=== PATIENT | female | born 1985 | race Caucasian/White ===

== ENCOUNTER → 2016-12-27 | Outpatient (REF) | payer SELFPAY ==
[~2016-12-27] MED LIST: PNV1TABL80 PO
[2016-12-27 17:39] LABS: BILIRUBIN,URINE Negative (Negative); CLARITY,URINE Clear; COLOR,URINE Yellow; GLUCOSE, URINE (UA) Negative (Negative); LEUKOCYTE ESTERASE ,URINE 1+ (Negative); UROBILINOGEN,URINE 0.2 mg/dL (0.2-1.0)
[2016-12-27 17:53] LABS: RBC,URINE None Seen /HPF; URINE CENTRIFUGED VOLUME 12 mL
[2016-12-27 17:57] LABS: AMPHETAMINE SCREEN, URINE Negative (Negative); CANNABINOID SCREEN, URINE Negative (Negative); METHAMPHETAMINE SCREEN URINE S NEGATIVE (NEGATIVE); OPIATE SCREEN URINE Negative (Negative); PROPOXYPHENE STAT NEGATIVE (NEGATIVE)
== END ==
LOC: LAB 17:00
PROVIDERS: ATTEND Obstetrics & Gynecology
DX: Z34.83 Encounter for supervision of other normal pregnancy, third trimester (principal); F19.10 Other psychoactive substance abuse, uncomplicated; Z98.891 History of uterine scar from previous surgery; Z72.0 Tobacco use
CPT/HCPCS: 80307; 81003; 81015; 87088

== ENCOUNTER 2016-12-30 17:52 | Observation (INO) | payer MEDICAID ==
[2016-12-30] VITALS (10 sets, daily range): BP systolic 118–161; BP diastolic 63–110
[~2016-12-30] VITALS: Ht 162.6 cm; Wt 74.3 kg
[2016-12-30] MEDS ORDERED: PNV1TABL80 PO (18:42)
[2016-12-30 19:26] LABS: BILIRUBIN,URINE Negative (Negative); GLUCOSE, URINE (UA) Negative (Negative); LEUKOCYTE ESTERASE ,URINE 1+ (Negative); PH,URINE 6.5 (5.0 - 8.0); UROBILINOGEN,URINE 0.2 mg/dL (0.2-1.0)
[2016-12-30 19:30] LABS: CLARITY,URINE Slightly Cloudy; COLOR,URINE Dark Yellow; URINE CENTRIFUGED VOLUME 12 mL
[2016-12-30 19:31] LABS: AMPHETAMINE SCREEN, URINE Negative (Negative); CANNABINOID SCREEN, URINE Negative (Negative); METHAMPHETAMINE SCREEN URINE S NEGATIVE (NEGATIVE); OPIATE SCREEN URINE Negative (Negative); RBC,URINE None Seen /HPF
[2016-12-30 19:32] LABS: PROPOXYPHENE STAT NEGATIVE (NEGATIVE)
--- NOTE | 2016-12-30 20:36 | History and Physical (E) ---
History & Physical (OB) Subjective: CC:White discharge HPI: 31 y/o C/S x1 now 36+6 WGA by patient reported outside U/S with white discharge, no itching, no clear fluid, no contractions. Amnisure negative , FHR 140, reactive, no decels. BP during monitoring have been 150-160/100- 110. UA shows tr protein, no DENISE, no LUQ pain. Has had slight chest/breathing tightness today. No recent drug use. PNC:In [place], transferred to [place] this week for care. OB Hx:C/S at term x1, failure to progress and intolerance of labor. PMHx:H/o drug use, smoker PSHx:C/S x1 Allergies: Coded Allergies: acetaminophen (Verified Allergy, Unknown, Hives, 12/30/16) hydrocodone (Verified Allergy, Unknown, Hives, 12/30/16) Home Medications: Reported Medications Pnv No.122/Iron/Folic Acid ( Multi Tablet)1 Each Tablet1 Each PO DAILY 12/30/16 Objective: Vital Signs Date Time Temp Pulse Resp B/P Pulse Ox O2 Delivery O2 Flow Rate FiO2 12/30/16 19:45 145/103 12/30/16 19:16 96 12/30/16 19:01 97.8 15 Laboratory Results Past 24 Hrs 12/30/16 18:10: Ur Tricyclic Antidepressants Screen Negative, Urine Amphetamines Screen Negative , Urine Bacteria 1+, Urine Barbiturates Screen Negative, Urine Benzodiazepines Screen Negative, Urine Bilirubin Negative, Urine Blood Negative, Urine Cannabinoids Screen Negative, Urine Clarity Slightly cloudy, Urine Cocaine Screen Negative, Urine Collection Type Clean catch, Urine Color Dark yellow, Urine Glucose (UA) Negative, Urine Ketones Negative, Urine Leukocyte Esterase 1+ , Urine Methadone Screen Negative, Urine Methamphetamines Screen Negative, Urine Microscopic RBC None seen, Urine Mucus 2+, Urine Nitrite Negative, Urine Opiates Screen Negative, Urine Oxycodone Screen Negative, Urine Phencyclidine Screen Negative, Urine Propoxyphene Screen Negative, Urine Protein Trace, Urine Specific [place] 1.020, Urine Squamous Epithelial Cells >100, Urine Urobilinogen 0.2, Urine WBC 5-10, Urine pH 6.5, Volume Urine Centrifuged 12 ml 12/30/16 18:15: Membranes Rupture (PAMG-1) Negative General: Alert and oriented, NAD Chest: Inspirations clear, no crackles or rattle. Small expiratory wheezes in bilateral bases. Abdomen: Gravid Cardiovasular: RRR, No murmur Extremities: No edema. DTR 2+ bilateral. no clonus or fasciculations. FHT's:140, reactive, reassuring, no decelerations Cx:NA [place]:none Screenings: Blood type: , Rubella , RPR non-reactive, HBV , HIV , GBS . Problems/Plans: (1) Gestational hypertension w/o significant proteinuria in 3rd trimester Place in observation for elevated blood pressure. We will monitor blood pressure, start 24 hour urine collection, complete labs and PIH labs. Continuous monitoring. She is already s/p betamethasone from elevated BP monitoring at 32 weeks. Additional Copies to: End of Report . AGUSTIN WALLACE MD Dec 30, 2016 20:36
[2016-12-30] MEDS ORDERED: ACETAMINOPHEN 325 MG TAB (TYLENOL) PO PRN (20:40)
[2016-12-30 21:09] LABS: BASOPHILS % (AUTO) 0 % (0-2); EOSINOPHILS # (AUTO) 0.1 10^3uL; EOSINOPHILS % (AUTO) 1 % (0-4); LYMPHOCYTES # (AUTO) 3.2 X10^3; MEAN CORPUSCULAR HEMOGLOBIN 29.3 PG (26.0-34.0); MEAN CORPUSCULAR HGB CONC 33.9 g/dL (31.0-37.0); MEAN CORPUSCULAR VOLUME 87 FL (80-100); MEAN PLATELET VOLUME 11.8 FL (6.0-9.5); MONOCYTES # (AUTO) 0.8 X10^3; MONOCYTES % (AUTO) 7 % (3-11); NEUTROPHILS # (AUTO) 7.1 X10^3; NEUTROPHILS % (AUTO) 63 % (51-67); PLATELET COUNT 183 10^3uL (150-450); WHITE BLOOD COUNT 11.29 10^3uL (4.0-11.0)
[2016-12-30 21:12] LABS: ALBUMIN 3.3 g/dL (3.4-5.0); ANION GAP 14.6 MEQ/L (3-15); TOTAL PROTEIN 7.2 g/dL (6.4-8.5)
[2016-12-31] VITALS (9 sets, daily range): BP systolic 132–177; BP diastolic 71–102
--- NOTE | 2016-12-31 09:03 | Progress Note-A/P (E) ---
Progress Note Subjective Subjective Feels great. BP overnight normal. No DENISE, vision change, RUQ pain. Breathing better and clearer. Normal movement, no LOF/VB/CTX. Objective VS Vital Signs Date Time Temp Pulse Resp B/P Pulse Ox O2 Delivery O2 Flow Rate FiO2 12/31/16 08:00 93 153/102 12/31/16 04:01 13 12/31/16 01:02 97.8 Current Medications Current Medications Acetaminophen 650 mg Q6H PRN PO; Start 12/30/16 at 20:40 General Awake, alert, oriented to person, place, and situation. NAD at present HEENT EOMI, PERRL CV RRR, S1 S2 audible Lungs Clear No rales, rhonchi or wheezes Abdomen Soft non distended, no tenderness to palpation, no masses Extremities No edema Integumentary No unusual findings Neuro No focal motor neuro deficits Labs, Most Recent- Laboratory Results Past 24 Hrs 12/30/16 18:10: Chlamydia trachomatis RNA [Pending], Chlamydia/GC DNA Probe Source [Pending], N. gonorrhoeae DNA Specimen Source [Pending], Neisseria gonorrhoeae RNA [Pending ], Ur Tricyclic Antidepressants Screen Negative, Urine Amphetamines Screen Negative, Urine Bacteria 1+, Urine Barbiturates Screen Negative, Urine Benzodiazepines Screen Negative, Urine Bilirubin Negative, Urine Blood Negative , Urine Cannabinoids Screen Negative, Urine Clarity Slightly cloudy, Urine Cocaine Screen Negative, Urine Collection Type Clean catch, Urine Color Dark yellow, Urine Glucose (UA) Negative, Urine Ketones Negative, Urine Leukocyte Esterase 1+, Urine Methadone Screen Negative, Urine Methamphetamines Screen Negative, Urine Microscopic RBC None seen, Urine Mucus 2+, Urine Nitrite Negative, Urine Opiates Screen Negative, Urine Oxycodone Screen Negative, Urine Phencyclidine Screen Negative, Urine Propoxyphene Screen Negative, Urine Protein Trace, Urine Specific [place] 1.020, Urine Squamous Epithelial Cells > 100, Urine Urobilinogen 0.2, Urine WBC 5-10, Urine pH 6.5, Volume Urine Centrifuged 12 ml 12/30/16 18:15: Membranes Rupture (PAMG-1) Negative 12/30/16 20:45: Activated Partial Thromboplast Time 26.2, Alanine Aminotransferase (ALT/SGPT) 58 , Albumin 3.3, Albumin/Globulin Ratio 0.846, Alkaline Phosphatase 186, Anion Gap 14.6, Aspartate Amino Transf (AST/SGOT) 36, BUN/Creatinine Ratio 22, Basophils # (Auto) 0.0, Basophils (%) (Auto) 0, Blood Urea Nitrogen 11, Calcium Level 9.1, Calcium/Ionized Calcium Ratio 4.0, Calculated Osmolality 267, Carbon Dioxide Level 25, Chloride Level 103, Creatinine 0.51, Eosinophils # (Auto) 0.1 , Eosinophils (%) (Auto) 1, Estimat Glomerular Filtration Rate 170.2, Estimated GFR (Non- 140.7, Fibrinogen 685.0, Glucose Level 89, HIV P24 Antigen Negative, HIV-1 Antibody Rapid Screen Negative, Hematocrit 30.40, Hemoglobin 10.3, Hepatitis B Surface Antigen [Pending], Lactate Dehydrogenase 357, Lymphocytes # (Auto) 3.2, Lymphocytes (%) (Auto) 28, Mean Corpuscular Hemoglobin 29.3, Mean Corpuscular Hemoglobin Concent 33.9, Mean Corpuscular Volume 87, Mean Platelet Volume 11.8, Monocytes # (Auto) 0.8, Monocytes (%) ( Auto) 7, Neutrophils # (Auto) 7.1, Neutrophils (%) (Auto) 63, Platelet Count 183 , Potassium Level 4.0, Prothromb Time International Ratio 0.9, Prothrombin Time 10.1, Rapid Plasma Reagin [Pending], Red Blood Count 3.51, Red Cell Distribution Width 12.8, Rubella IgG Antibody [Pending], Sodium Level 139, Total Bilirubin 0.4, Total Protein 7.2, Uric Acid 3.8, White Blood Count 11.29 24 Hr Result Diagram CBC BMP Last 24 Hrs 12/30/16 20:45 Assessment Gestational hypertension, S/P steroids at 32 weeks, now 36+6 WGA. All PIH labs normal. BP normal overnight, one elevated at 150/100 this morning, reports while she was up and upset. No treatable BP or consistent elevations. Plan We discussed discharge to home, 24 hour urine completion tonight, return to drop it off. Warning signs for preeclampsia, labor precautions reviewed. F/U Monday at our office. AGUSTIN WALLACE MD Dec 31, 2016 09:03
[2016-12-31 16:52] LABS: HEPATITIS B SURFACE ANTIGEN C Negative
[2017-01-01 10:49] LABS: RUBELLA AB IGG 1.13 OD Ratio (>1.09)
== END 2016-12-31 09:30 | disposition home or self-care (01) ==
LOC: EUOP 17:52 → OB 17:53 → INTOOBSV 20:20 → EUOP 20:20
PROVIDERS: ADMIT Obstetrics & Gynecology; ATTEND Obstetrics & Gynecology
DX: O13.3 Gestational [pregnancy-induced] hypertension without significant proteinuria, third trimester (principal); Z3A.36 36 weeks gestation of pregnancy
CPT/HCPCS: 36415; 80053; 80307; 81003; 81015; 83615; 84112; 84550; 85025; 85384; 85610; 85730; 86592; 86762; 86850; 86900; 86901; 87088; 87340; 87491; 87591; G0378; G0433; G0463; 84156; 99203; 99218

== ENCOUNTER → 2016-12-31 | Outpatient (CLI) | payer MEDICAID ==
[~2016-12-31] MED LIST changes: +DOCU100C8 PO; +FERR325T5 PO; +OXYC1TAB87 PO
== END ==
LOC: LAB 20:10
PROVIDERS: ATTEND Obstetrics & Gynecology
DX: O13.3 Gestational [pregnancy-induced] hypertension without significant proteinuria, third trimester (principal); Z3A.36 36 weeks gestation of pregnancy
CPT/HCPCS: 36415; 81050; 82575; 84156

== ENCOUNTER 2017-01-15 06:53 | Inpatient (IN) | payer MEDICAID ==
[~2017-01-15] VITALS: Ht 162.6 cm; Wt 78.6 kg
[2017-01-15] VITALS (21 sets, daily range): BP systolic 91–160; BP diastolic 50–110
[~2017-01-15 06:53] MED LIST changes: -DOCU100C8 PO; -FERR325T5 PO; -OXYC1TAB87 PO; +SODIUM CHLORIDE FLUSH 10 ML SYR IV PRN; +ceFAZolin 2,000 MG in SODIUM CHLORIDE VIAL (PF) 20 ML IV SCH
--- OUTSIDE RECORDS SUMMARY | 2017-01-15 06:57 | XMS REPORT | Continuity of Care Document ---
Author Author [facility] Address Unknown Phone Unavailable Support Name Relationship Address Phone AGUSTIN WALLACE MD Caregiver [address] [place] [address] BERNARDO CARPENTER Next Of Kin [address] [place] [address] Insurance Providers Payer Name Policy Number Subscriber Name Relationship Self Pay Jonathon Clifton 18 Self / Same As Patient Chief Complaint and Reason for Visit Chief Complaint LABOR EVAL Reason for Visit Gestational hypertension w/o significant proteinuria in 3rd trimester with 36 completed weeks gestation Vaginal discharge during in third trimester Problems Active Problems Medical Problem Onset Date Status Gestational hypertension w/o significant proteinuria in 3rd trimester Unknown Acute with 36 completed weeks gestation Unknown Acute Vaginal discharge during in third trimester Unknown Acute Medications Current Home Medications Medication Dose Units Route Directions Days/Qty Instructions Start Date Pnv No.122/Iron/Folic Acid 1 Each 1 Each ORAL Daily 12/30/16 Social History Query Response Start Date Stop Date Smoking Status Current every day smoker Hospital Discharge Instructions No hospital discharge instructions. Plan of Care Discharge Date 12/31/16 9:30am Disposition 01 HOME OR SELF-CARE Prescriptions See Medication Section Functional Status No functional status results. Allergies, Adverse Reactions, Alerts Allergen Type Severity Reaction Status Last Updated Hydrocodone Allergy Unknown Hives Active 12/30/16 Acetaminophen Allergy Unknown Hives Active 12/30/16 Immunizations No immunization records. Vital Signs Acute Vital Signs Vital Response Date/Time Temperature (Fahrenheit) 97.8 12/31/2016 1:02am Pulse 96 bpm 12/31/2016 9:00am Respirations 16 12/31/2016 9:00am Height 5 ft 4 in Weight 163 lb Body Mass Index 28.0 kg/m^2 Results Laboratory Results Test Name Result Units Flags Reference Collection Date/Time Result Date/ Time Comments Volume Urine Centrifuged 12 mL 12/27/2016 2:37pm 12/27/2016 5:54pm Urine Collection Type CLEAN CATCH 12/27/2016 2:37pm 12/27/2016 5: 54pm Urine Color Yellow 12/27/2016 2:37pm 12/27/2016 5:41pm Urine Clarity Clear 12/27/2016 2:37pm 12/27/2016 5:41pm Urine pH 7.0 5.0 - 8.0 12/27/2016 2:37pm 12/27/2016 5:41pm Urine Specific [place] 1.010 1.005-1.030 12/27/2016 2:37pm 2016 5:41pm Urine Protein Negative Negative 12/27/2016 2:37pm 12/27/2016 5:41pm Urine Glucose (UA) Negative Negative 12/27/2016 2:37pm 12/27/2016 5: 41pm Urine Blood Negative Negative 12/27/2016 2:37pm 12/27/2016 5:41pm Urine Ketones Negative Negative 12/27/2016 2:37pm 12/27/2016 5:41pm Urine Nitrite Negative Negative 12/27/2016 2:37pm 12/27/2016 5:41pm Urine Bilirubin Negative Negative 12/27/2016 2:37pm 12/27/2016 5: 41pm Urine Urobilinogen 0.2 mg/dL 0.2-1.0 12/27/2016 2:37pm 12/27/2016 5: 41pm Urine Leukocyte Esterase 1+ H Negative 12/27/2016 2:37pm 12/27/2016 5: 41pm Urine Microscopic RBC None Seen /HPF 12/27/2016 2:37pm 12/27/2016 5: 54pm Urine WBC 20-50 /HPF H 12/27/2016 2:37pm 12/27/2016 5:54pm Urine Bacteria Rare /HPF 12/27/2016 2:37pm 12/27/2016 5:54pm Urine Squamous Epithelial Cells 10-20 /LPF 12/27/2016 2:37pm 2016 5:54pm Pending Laboratory Results Test Name Collection Date/Time Procedures Procedure Status Date Provider(s) DRUG TEST PRSMV CHEM ANLYZR Completed 12/27/16 URINALYSIS AUTO W/O SCOPE Completed 12/27/16 MICROSCOPIC EXAM OF URINE Completed 12/27/16 URINE BACTERIA CULTURE Completed 12/27/16 Encounters Encounter Location Arrival/Admit Date Discharge/Depart Date Attending Provider Discharged Inpatient (obs) [facility] 12/30/16 8:20pm 12/31/16 9: 30am AGUSTIN WALLACE MD Registered Referred [facility] 12/27/16 5:00pm AGUSTIN WALLACE MD Recent Diagnosis Gestational hypertension w/o significant proteinuria in 3rd trimester with 36 completed weeks gestation Vaginal discharge during in third trimester
[2017-01-15] MEDS ORDERED: POT BICARB/SOD BICARB/CIT AC (ALKA-SELTZER GOLD) 1 TABLET.EFF PO SCH (07:00)
[2017-01-15] MEDS ORDERED: METOCLOPRAMIDE 10 MG/2 ML (REGLAN) VIAL IV SCH (07:00)
[2017-01-15 07:36] LABS: MEAN CORPUSCULAR HEMOGLOBIN 28.7 PG (26.0-34.0); MEAN CORPUSCULAR HGB CONC 33.9 g/dL (31.0-37.0); MEAN PLATELET VOLUME 11.8 FL (6.0-9.5); WHITE BLOOD COUNT 10.26 10^3uL (4.0-11.0)
[2017-01-15 07:47] LABS: ANION GAP 12.3 MEQ/L (3-15)
[2017-01-15] MEDS ORDERED: METOCLOPRAMIDE 10 MG/2 ML (REGLAN) VIAL ONE (07:49)
[2017-01-15] MEDS ORDERED: POT BICARB/SOD BICARB/CIT AC (ALKA-SELTZER GOLD) 1 TABLET.EFF PO ONE (07:49)
[2017-01-15] MEDS ORDERED: OXYTOCIN 10 UNIT/ML (PITOCIN) 1 ML VIAL ONE ×2 (07:50→14:03)
[2017-01-15] MEDS ORDERED: ROPIVACAINE 1% 10 MG/ML (NAROPIN) 20 ML AMPUL ONE (07:50)
[2017-01-15] MEDS ORDERED: morphine PF 0.5 MG/ML (DURAMORPH) 10 ML VIAL IV ONE (07:51)
[2017-01-15] MEDS ORDERED: SODIUM CHLORIDE FLUSH 20 ML ONE (07:51)
[2017-01-15] MEDS ORDERED: ceFAZolin 1000 MG (ANCEF) VIAL ONE (07:51)
--- NOTE | 2017-01-15 08:11 | History and Physical (E) ---
History & Physical (OB) Subjective: CC:repeat HPI: 31 y/o at 39+1 WGA with history of section desiring repeat elective section. Complications this include transfer of care from [place] in the last month of . She had positive drug use and screens at 26 weeks, including meth and THC. She has been clean for 2 months, and 2 drug screens in [place] have been negative. She reports moving away to get away from those issues. She is a daily smoker, and has significant anxiety, likely bipolar disorder. She is not taking medication for that. She has had episodes of high blood pressure, that resolve with rest and monitoring. All work up for preeclampsia has been negative, and very likely these are manifestations of mental health. OB Hx:C/S x1 at term PMHx:Anxiety disorder, smoking, history of drug abuse PSHx:C/S x1. Allergies: Coded Allergies: acetaminophen (Verified Allergy, Unknown, Hives, 12/30/16) hydrocodone (Verified Allergy, Unknown, Hives, 12/30/16) Home Medications: Reported Medications Pnv No.122/Iron/Folic Acid ( Multi Tablet)1 Each Tablet1 Each PO DAILY 12/30/16 Objective: Laboratory Results Past 24 Hrs 01/15/17 07:20: Activated Partial Thromboplast Time 28.4, Anion Gap 12.3, BUN/Creatinine Ratio 20, Blood Urea Nitrogen 10, Calcium Level 8.7, Carbon Dioxide Level 20, Chloride Level 109, Creatinine 0.50, Estimat Glomerular Filtration Rate 174.1, Estimated GFR (Non- 143.9, Glucose Level 90, Hematocrit 31.30, Hemoglobin 10.6, Mean Corpuscular Hemoglobin 28.7, Mean Corpuscular Hemoglobin Concent 33.9, Mean Corpuscular Volume 85, Mean Platelet Volume 11.8, Platelet Count 170, Potassium Level 3.9, Prothromb Time International Ratio 0.9, Prothrombin Time 9.5, Red Blood Count 3.69, Red Cell Distribution Width 13.2, Sodium Level 138, White Blood Count 10.26 General: Alert and oriented, NAD Chest: CTA Abdomen: Gravid Cardiovasular: RRR, No murmur Extremities: No edema FHT's:135, reactive, reassuring, moderate variability Cx:NA [place]:No significant contractions. Screenings: Blood type: O Positive, Rubella Immune, RPR non-reactive, HBV , HIV Negative , GBS Unknown. Problems/Plans: (1) Smoker (2) Anxiety disorder affecting , antepartum (3) Drug abuse (4) Status post repeat low transverse section (5) with 39 completed weeks gestation Elective repeat section. Pediatrics aware of history and plan drug testing on infant, and monitoring for depression and withdrawal. Surgery risks again reviewed, will proceed with planned delivery. Additional Copies to: End of Report . AGUSTIN WALLACE MD January 15, 2017 08:11
[2017-01-15] MEDS ORDERED: MIDAZOLAM 2 MG/2 ML (VERSED) VIAL ONE (08:48)
[2017-01-15] MEDS ORDERED: OXYTOCIN INJ 20 UNIT in NS 1000ml 1,000 ML IV SCH (09:21)
[2017-01-15] MEDS: NICOTINE 21 MG (NICODERM) PATCH TD SCH (09:25)
[2017-01-15] MEDS ORDERED: LANOLIN OINTMENT 28 GM TUBE TOP PRN (09:25)
[2017-01-15] MEDS ORDERED: M-M-R II (MEASLES,MUMPS,RUBELLA) VACCINE SC ONE (09:25)
--- NOTE | 2017-01-15 09:29 | Operative Report (E) ---
Operative Report (E) 01/15/17 09:28 Pre-Operative Diagnosis: History of section, history of drug abuse, smoker Post-Operative Diagnosis: Same plus Procedure: Repeat section Surgeon: Michael Sales Architect: Amna Anesthesia: Epidural EBL: 500cc Findings: Normal pelvis. Delivery of 7' 4", APGARS 8, 9, 9 AGUSTIN WALLACE MD January 15, 2017 09:29
[2017-01-15] MEDS: IBUPROFEN 600 MG (MOTRIN) TAB PO SCH ×3 (10:00→22:00)
[2017-01-15] MEDS ORDERED: diphenhydrAMINE 50 MG/ML INJ (BENADRYL) IV PRN (12:20)
[2017-01-15] MEDS ORDERED: diphenhydrAMINE 50 MG/ML INJ (BENADRYL) IM PRN (12:20)
[2017-01-15] MEDS ORDERED: diphenhydrAMINE 25 MG (BENADRYL) TABLET PO PRN (12:20)
[2017-01-15] MEDS ORDERED: NALBUPHINE 10 MG/ML (NUBAIN) 1 ML AMP IV PRN ×2 (12:20)
[2017-01-15] MEDS ORDERED: diphenhydrAMINE 50 MG (BENADRYL) CAPSULE PO PRN (12:20)
[2017-01-15] MEDS ORDERED: ONDANSETRON 2 MG/ML (Z0FRAN) 2 ML VIAL IV PRN (12:20)
[2017-01-15] MEDS: DOCUSATE SODIUM 100 MG (COLACE) CAP PO SCH (22:00)
[2017-01-16] MEDS: IBUPROFEN 600 MG (MOTRIN) TAB PO SCH ×3 (05:00→18:08)
[2017-01-16 05:04] VITALS: BP 132/92
[2017-01-16] MEDS: NICOTINE 21 MG (NICODERM) PATCH TD SCH (07:04)
[2017-01-16 07:06] LABS: MEAN CORPUSCULAR HEMOGLOBIN 29.6 PG (26.0-34.0); MEAN CORPUSCULAR HGB CONC 34.1 g/dL (31.0-37.0); MEAN PLATELET VOLUME 11.7 FL (6.0-9.5); WHITE BLOOD COUNT 17.2 10^3uL (4.0-11.0)
[2017-01-16 08:00] VITALS: BP 134/95
[2017-01-16] MEDS: oxyCODONE/ACETAMINOPHEN 5MG-325 MG (PERCOCET) TABLET PO PRN ×3 (08:05→20:55)
--- NOTE | 2017-01-16 08:56 | Progress Note (E) ---
Post- Progress Note Subjective: Doing well, POD#1 S/P repeat C/S. Reports normal ambulating, voiding, pain control, and tolerating PO. Lochia normal. Objective: Vital Signs Date Time Temp Pulse Resp B/P Pulse Ox O2 Delivery O2 Flow Rate FiO2 01/16/17 05:04 97.8 126 16 132/92 100 Room air 110 I & O 01/15/17 01/16/17 19:00 07:00 Intake Total 1000 ml Output Total 500 ml Balance 500 ml Laboratory Tests 01/16/17 07:00: Hematocrit 21.40, Hemoglobin 7.3, Mean Corpuscular Hemoglobin 29.6, Mean Corpuscular Hemoglobin Concent 34.1, Mean Corpuscular Volume 87, Mean Platelet Volume 11.7, Platelet Count 224, Red Blood Count 2.47, Red Cell Distribution Width 13.2, White Blood Count 17.20 Blood type: O Positive, Current Medications Sodium Chloride 1,000 ml @ 0 mls/hr Q0M IV Last administered on 01/15/17 07:38 ; Admin Dose 125 MLS/HR; Start 01/15/17 at 06:47 Sodium Chloride 10 ml 10 ml PRN PRN IV; Start 01/15/17 at 06:50 Oxytocin/Sodium Chloride 1,002 ml @ 0 mls/hr Q0M IV Last administered on 14:09; Admin Dose 150 MLS/HR; Start 01/15/17 at 09:21 Ibuprofen 600 mg Q6H PO Last administered on 01/16/17 05:00; Admin Dose 600 MG ; Start 01/15/17 at 10:00 Oxycodone/ Acetaminophen Total acetaminophen not... Q4H PRN PO Last administered on 01/16/17 08:05; Admin Dose 1 TAB; Start 01/15/17 at 09:25 Docusate Sodium 100 mg HS PO Last administered on 01/15/17 22:00; Admin Dose 100 MG; Start 01/15/17 at 21:00 Lanolin 28 gm PRN PRN TOP; Start 01/15/17 at 09:25 Nicotine 21 mg DAILY TD Last administered on 01/16/17 07:04; Admin Dose 21 MG; Start 01/15/17 at 09:25 Ondansetron HCl 4 mg Q6H PRN IV; Start 01/15/17 at 12:20 General: Alert and oriented, NAD Abdomen: Soft, non-distended, fundus firm Dressing C/D/I Extremities: No edema Cardiovascular: RRR, No murmur Problems/Plans: (1) Smoker (2) Anxiety disorder affecting , antepartum (3) Drug abuse (4) Status post repeat low transverse section (5) with 39 completed weeks gestation Comment Doing well POD#1. Hgb stable at 7.3, asymptomatic. Using daily nicotine patch. Will hep lock IV, ambulate, advance PO and meds. Anticipate discharge tomorrow. AGUSTIN WALLACE MD January 16, 2017 08:56
--- NOTE | 2017-01-16 09:52 | OPERATIVE REPORT ---
DATE OF OPERATION: 01/15/2017 PRE-OPERATIVE DIAGNOSIS: 1. History of section. 2. Term . 3. History of drug abuse. 4. Smoker. POST-OPERATIVE DIAGNOSIS: 1. History of section. 2. Term . 3. History of drug abuse. 4. Smoker. 5. . OPERATIVE PROCEDURE: Repeat low transverse section SURGEON: Rocky Rodriguez MD FRANKFURTER INSPECTOR: Patti Woo MD ANESTHESIA: Epidural ESTIMATED BLOOD LOSS: 500 Ml SPECIMEN: 1. Placenta. 2. Cord segment. COMPLICATIONS: None FINDINGS: Intraoperatively the patient was noted to have a normal appearing pelvis with only a small amount of lower uterine scarring from her previous . There was delivery of a 7 pound 4 ounce baby girl with 's of 8, 9 and 9. DESCRIPTION OF PROCEDURE: After confirming the validity of the informed consent the patient was transported to the operating suite she was placed in the left tilt lithotomy position after epidural anesthesia was administered without event. The patient was sterilely prepped and draped in the usual fashion and the bladder was catheterized with the Voss catheter prior to entry to the OR. A Pfannenstiel skin incision was made through the old scar and carried down to the fascia, which was next to the right and the left midline. The fascia was extended to the right and left with Paris scissors and dissected off the underlying rectus muscle superiorly and inferiorly without difficulty. The rectus muscles were divided bluntly and the peritoneum was entered bluntly without difficulty. The peritoneum was extended slightly with stretch. The peritoneum overlying the lower uterine segment was incised with the Metzenbaum scissors creating a bladder flap, which the bladder blade was placed inside of. A low transverse incision was made with the scalpel and enlarged slightly with stretch. The membranes were ruptured with return of clear fluid. The 's head was elevated through the hysterotomy incision and delivered with a small amount of fundal pressure. The nose and mouth were suctioned with bulb suction. The cord was clamped and cut and the was placed in the warmer for evaluation. The placenta was delivered manually without difficulty. The uterus was externalized and cleared of all clots, debris and membranes. The cervix was dilated slightly with the ring forceps. The uterine incision was then closed with a running, locking #0 Vicryl suture and imbricated with a #0 locking Vicryl suture was well. A figure-of-8 suture was placed in the right angle of the uterine incision to create complete hemostasis. The incision was inspected and found to be hemostatic. The uterus was returned to the abdomen and the abdomen and colic gutters were cleared of all clot and debris. The incision was again inspected and found to be hemostatic. The peritoneum was then closed with a #0 chromic suture. The fascia was closed with a running #0 Vicryl suture. The subcutaneous space was irrigated with normal saline and the skin was closed with stainless steel shefali. There was a small amount of subcutaneous bleeding that was controlled with cautery. All needle, sponge, and instrument counts were correct x2. The patient tolerated the procedure well and was transferred to her room to recover in good condition.
[2017-01-16] MEDS ORDERED: FERROUS SULFATE 325 MG (IRON) TABLET PO SCH (19:25)
[2017-01-16 20:00] VITALS: BP 130/85
[2017-01-16] MEDS: DOCUSATE SODIUM 100 MG (COLACE) CAP PO SCH (20:54)
[2017-01-17] MEDS: IBUPROFEN 600 MG (MOTRIN) TAB PO SCH ×2 (00:23→06:16)
[2017-01-17] MEDS: oxyCODONE/ACETAMINOPHEN 5MG-325 MG (PERCOCET) TABLET PO PRN ×2 (03:16→09:14)
[2017-01-17 08:00] VITALS: BP 142/84
--- NOTE | 2017-01-17 08:45 | Discharge Summary (E) ---
OB Discharge Summary Admit Date/Time January 15, 2017 at 06:53 Discharge Date/Time 01/17/17 Admitting Provider Agustin Wallace MD Primary Care Provider Attending Provider Agustin Wallace MD Consulting Provider Procedures Repeat C/S 01/15 without complication. Admission Diagnosis H/O section history of drug abuse smoker Anxiety disorder History and Present Illness See History and Physical for complete details. Hospital Course and Treatment Uncomplicated repeat C/S. Normal course, Hgb stable at 7.3, no significant anemia symptoms. discharge POD#2 with 1 week follow-up. Discharge Physicial Exam General Alert and oriented, NAD Abdomen Soft, non-distended, fundus firm Incision C/D/I Extremities No edema Cardiovascular: RRR, No murmur Laboratory Results Past 24 Hrs 01/16/17 19:00: Hepatitis C Antibody [Pending] Discharge Disposition Home Instructions Nothing PV 6 weeks. No lifting >15 lbs for 2 weeks, showers no baths 2 weeks. Call with severe fever, bleeding, pain. Diet Regular Follow up Comment [address] Wallace Discharge Diagnosis Problems/Plans: (1) Smoker (2) Anxiety disorder affecting , antepartum (3) Drug abuse (4) Status post repeat low transverse section (5) with 39 completed weeks gestation Comment Doing great POD#2 s/p repeat C/S. Social work to stop in to evaluate for needs. Will discharge home today, F/U 1 week. Discharge instructions reviewed. Copies to: End of Report . AGUSTIN WALLACE MD January 17, 2017 08:45
[2017-01-17] MEDS ORDERED: DOCU100C8 PO (08:47)
[2017-01-17] MEDS ORDERED: OXYC1TAB87 PO (08:47)
[2017-01-17] MEDS ORDERED: FERR325T5 PO (08:47)
--- NOTE | 2017-01-17 16:27 | NUR ---
Discharged to home. Left ambulatory from dept with all belongings accompanied by this nurse and her significant other. Baby carried in car seat. Follow up appointment with Dr. Rodriguez scheduled for 01/23/17. Office called and 15:30 appointment time scheduled. This was relayed to Maria Esther per phone call.
== END 2017-01-17 10:55 | disposition home or self-care (01) | DRG 766 ==
LOC: OB 06:53
PROVIDERS: ADMIT Obstetrics & Gynecology; ATTEND Obstetrics & Gynecology
PROC: 10D00Z1 Extraction of Products of Conception, Low, Open Approach (ICD-10-PCS; principal; 2017-01-15)
DX: O34.211 Maternal care for low transverse scar from previous cesarean delivery (principal); O99.334 Smoking (tobacco) complicating childbirth; F17.210 Nicotine dependence, cigarettes, uncomplicated; O99.344 Other mental disorders complicating childbirth; F41.9 Anxiety disorder, unspecified; Z87.898 Personal history of other specified conditions; Z3A.39 39 weeks gestation of pregnancy; Z37.0 Single live birth
CPT/HCPCS: 36415; 59510; 80048; 85027; 85610; 85730; 86803; 86850; 86900; 86901; 94762